=== PATIENT | female | born 1990 | race American Indian/Alaskan Native ===

== ENCOUNTER 2017-04-01 13:06 | Emergency (ER) | payer MEDICAID ==
[2017-04-01 13:45] VITALS: BP 131/69
[2017-04-01 14:38] LABS: Bilirubin,Urine NEG (Negative); Blood,Urine NEG (Negative); Ketones,Urine NEG (Negative); Leukocyte Esterase,Urine NEG (Negative); Mucus,Urine 1+ /HPF; Nitrite,Urine NEG (Negative); Protein,Urine <15 mg/dL mg/dL (Negative); Urobilinogen,Urine < 2.0 mg/dL (<2.0); WBC,Urine < 1.0 /HPF (0.0-6.0)
--- NOTE | 2017-04-06 11:21 | ED Elopement Review ---
ED Pt Elopement review - Results review Lab results: Laboratory Tests 04/01/17 14:03 Urine Color Yellow Urine Turbidity Clear Urine pH 6.0 Ur Specific Alva 1.025 Urine Protein <15 mg/dl Urine Glucose (UA) Neg Urine Ketones Neg Urine Blood Neg Urine Nitrite Neg Urine Bilirubin Neg Urine Urobilinogen < 2.0 Ur Leukocyte Esterase Neg Urine WBC (Auto) < 1.0 Urine RBC (Auto) 3.0 U Epithel Cells (Auto) 6.0 Urine Mucus 1+ - Call Back decision Pt Call Back Decision: No action required
== END 2017-04-01 19:10 | disposition left against medical advice (07) ==
LOC: ED 13:06
DX: R10.9 Unspecified abdominal pain (principal); Z53.21 Procedure and treatment not carried out due to patient leaving prior to being seen by health care provider
CPT/HCPCS: 81001; 81025